=== PATIENT | female | born 1995 ===

== ENCOUNTER → 2023-11-21 13:58 | Outpatient (REF) | payer OTHER, SELFPAY ==
[2023-11-21 16:04] LABS: Rubella Positive
[2023-11-21 16:27] LABS: Hepatitis B Surface Antibody Positive
[2023-11-27 15:57] LABS: Mumps Virus IgG Negative; Rubeola (Measles) IgG Positive; Varicella Zoster IgG (VZV) Positive
== END ==
LOC: OHS 13:58
PROVIDERS: ATTENDING PHYSICIAN Nurse Practitioner Family
DX: Z23 Encounter for immunization (principal)
CPT/HCPCS: 36415; 86706; 86735; 86762; 86765; 86787

== ENCOUNTER → 2023-11-25 09:29 | Outpatient (REF) | payer OTHER, SELFPAY ==
[2023-11-28 14:52] LABS: Quantiferon Mitogen minus NIL >10.00 IU/mL; Quantiferon NIL 0.02 IU/mL; Quantiferon TB Gold Plus Negative (Negative)
== END ==
LOC: OHS 09:29
PROVIDERS: ATTENDING PHYSICIAN Nurse Practitioner
DX: Z23 Encounter for immunization (principal)
CPT/HCPCS: 36415; 86480